=== PATIENT | male | born 1975 | race Caucasian/White ===

== ENCOUNTER → 2020-07-18 14:44 | Outpatient (BNVA) | payer OTHER, SELFPAY | PROVIDERS: PCP Nurse Practitioner Family; Visit Provider Internal Medicine Pulmonary Disease | DX: Z01.810 Encounter for preprocedural cardiovascular examination (principal); G47.33 Obstructive sleep apnea (adult) (pediatric); I27.20 Pulmonary hypertension, unspecified; J44.9 Chronic obstructive pulmonary disease, unspecified | CPT/HCPCS: 99212 ==

== ENCOUNTER → 2020-09-22 14:00 | Outpatient (BNVA) | payer OTHER, SELFPAY | PROVIDERS: PCP Nurse Practitioner Family; Visit Provider Internal Medicine Pulmonary Disease | DX: J44.9 Chronic obstructive pulmonary disease, unspecified (principal); G47.33 Obstructive sleep apnea (adult) (pediatric) | CPT/HCPCS: 99212 ==

== ENCOUNTER → 2021-01-24 10:55 | Outpatient (BNVA) | payer OTHER, SELFPAY | PROVIDERS: PCP Nurse Practitioner Family; Visit Provider Internal Medicine Pulmonary Disease | DX: Z01.811 Encounter for preprocedural respiratory examination (principal); G47.33 Obstructive sleep apnea (adult) (pediatric); J44.9 Chronic obstructive pulmonary disease, unspecified | CPT/HCPCS: 99212 ==

== ENCOUNTER 2022-07-15 12:02 | Outpatient (REF) | payer OTHER, SELFPAY ==
[2022-07-15 13:43] LABS: MANUAL DIFF FLAG NO
[2022-07-15 13:47] LABS: Basophils Absolute Auto 0.1 X10*3/uL (0.0-0.2); Eosinophils Absolute Auto 0.4 X10*3/uL (0.0-0.4); Eosinophils Percent Auto 6.4 % (0-4); Hematocrit 43.9 % (42.0-52.0); Hemoglobin 13.2 g/dl (14.0-18.0); Imm Gran Abs Auto 0.05 X10*3/uL (0.00-0.03); Imm Gran Pct Auto 0.7 % (0.0-0.4); Lymphocytes Percent Auto 15.3 % (20-40); Mean Corpuscular HGB Conc 30.1 g/dl (31.0-36.0); Mean Corpuscular Hemoglobin 25.3 pg (27.0-33.0); Mean Corpuscular Volume 84.1 fL (80.0-98.0); Mean Platelet Volume 12.1 fL (9.4-12.4); Monocytes Absolute Auto 0.5 X10*3/uL (0.1-1.2); Monocytes Percent Auto 7.2 % (2-11); Neutrophils Absolute Auto 4.6 x10*3/uL (2.0-8.3); Neutrophils Percent Auto 69.4 % (45-73); Platelet Count 145 X10*3/uL (160-400); Red Blood Count 5.22 X10*6/uL (4.60-5.80); White Blood Count 6.7 X10*3/uL (4.8-10.8)
[2022-07-15 13:57] LABS: Appearance Urine Clear; Color Urine Dark Yellow; Glucose Urine UA Negative (Negative); Leukocyte Esterase Urine Trace (Negative); Nitrite Urine Negative (Negative); Specific Gravity - Urine >= 1.030 (1.005-1.025); UMIC TRIGGER UACC YES; Urine Blood Negative (Negative); Urine Ketones Trace mg/dL (Negative); Urine Protein Trace mg/dL (Neg-Trace)
[2022-07-15 14:03] LABS: Bacteria Urine None Seen (None Seen); Hyaline Casts Urine 0-2 /LPF (0-2); RBC Urine 0-2 /HPF (0-2); Squamous Epithelial Cell Urine 0-2 /HPF (0-2); WBC Urine 0-5 /HPF (0-5)
[2022-07-15 14:04] LABS: Alanine Aminotransferase 16 U/L (0-40); Albumin Level 4.2 g/dL (3.5-5.0); Alkaline Phosphatase 140 U/L (39-117); Anion Gap 15 (12-20); Aspartate Amino Transferase 14 U/L (5-37); Bilirubin Total 0.8 mg/dL (0.0-1.0); Blood Urea Nitrogen 12 mg/dL (9-16); Calcium 8.7 mg/dL (8.4-10.2); Carbon Dioxide 27 mmol/L (22-29); Chloride 103 mmol/L (96-108); Cholesterol 125 mg/dL; Estimated Glomerular Filt Rate > 60; Glucose Fasting 87 mg/dL (60-99); HDL Cholesterol 20 mg/dL; LDL Cholesterol Calculated 79 mg/dl; Potassium 4.6 mmol/L (3.3-5.1); Sodium 140 mmol/L (135-145); Total Protein 6.3 g/dL (6.5-8.0); Triglycerides 132 mg/dL
[2022-07-15 14:21] LABS: TSH reflex Free T4 1.23 uIU/mL (0.32-4.0)
== END 2022-07-15 12:03 | disposition home or self-care (01) ==
LOC: HO.HMGCLDS 12:02
PROVIDERS: PCP Nurse Practitioner Family; Visit Provider Nurse Practitioner Family
DX: Z00.00 Encounter for general adult medical examination without abnormal findings (principal)
CPT/HCPCS: 36415; 80053; 80061; 81001; 84443; 85025

== ENCOUNTER → 2022-07-31 13:30 | Outpatient (BNVA) | payer OTHER, SELFPAY | PROVIDERS: PCP Nurse Practitioner Family; Referring Provider Nurse Practitioner Family; Visit Provider Surgery | DX: R22.9 Localized swelling, mass and lump, unspecified (principal); Z80.0 Family history of malignant neoplasm of digestive organs | CPT/HCPCS: 99202 ==

== ENCOUNTER 2022-08-27 09:04 | Day surgery (SDC) | payer OTHER, SELFPAY ==
[2022-08-21 10:41] VITALS: BMI 39.1
[2022-08-27] VITALS (7 sets, daily range): BP systolic 118–152; BP diastolic 72–94; PULSE 70–79; RESP 16–24; TEMP 36.3–36.8; O2SAT 93–98
--- NOTE | 2022-08-27 08:51 | MHC.SHP ---
Pre-Procedural Eval Section A Date of Service: 08/27/22 The patient is an INPATIENT: No Changes since office visit: No Cold of Flu in the past 2 weeks, No New Medical Problems, No Changes in Medication and No Patient answered all questions The History & Physical has been completed within 30 days and I have reviewed it.: Yes Section B Chief Complaint: Localized swelling, mass and lump, unspecified Allergies: Allergies Allergy/AdvReac Type Severity Reaction Status Date / Time walnut Allergy Intermediate Anaphylaxis, Verified 07/31/22 13:39 Throat swelling Plan I have reviewed the history and physical and performed a pertinent physical examination on my patient. No changes have occurred unless specified. Time Spent With Patient Time: Total time managing care of this patient today ____ minutes.
--- NOTE | 2022-08-27 09:21 | MHC.SHP ---
Pre-Procedural Eval Section A Date of Service: 08/27/22 The patient is an INPATIENT: No Changes since office visit: No Cold of Flu in the past 2 weeks, No New Medical Problems, No Changes in Medication and No Patient answered all questions The History & Physical has been completed within 30 days and I have reviewed it.: Yes Section B Chief Complaint: Localized swelling, mass and lump, unspecified Allergies: Allergies Allergy/AdvReac Type Severity Reaction Status Date / Time walnut Allergy Intermediate Anaphylaxis, Verified 08/27/22 09:12 Throat swelling Plan I have reviewed the history and physical and performed a pertinent physical examination on my patient. No changes have occurred unless specified. Time Spent With Patient Time: Total time managing care of this patient today ____ minutes.
[2022-08-27] MEDS: Albuterol Sulfate (0.083%) 2.5 MG/3 ML VIAL.NEB INHALE (09:44)
--- NOTE | 2022-08-27 10:34 | P.OP_ITS ---
Operative Note Operative Note Date of Service: 08/27/22 Narrative: Preop diagnosis: Large lipoma, left medial thigh near the perineum Postop diagnosis: The same Procedure: Excision of a large lipoma, left medial thigh near the perineum under anesthesia, The lipoma measured 7 cm in widest diameter. Surgeon: Shukri Lawton MD The patient is a 47-year-old male with the lipoma on the medial thigh near the perineum. He wanted to proceed with excision. In view of the size and l ocation, I explained to him it will be best to do since the OR under anesthesia. He understood the risks, benefits, and alternatives. He was brought to the operating room. He was placed in frogleg position under monitored anesthesia care. A surgical time-out was done. The area of the lipomas prepped and draped in the usual sterile fashion. I infiltrated the area with lidocaine 1%. The patient received preop cefazolin as well. I made an elliptical incision on the skin overlying this lipoma using a blade 15. This was carried down with electrocautery through the full-thickness of the skin and part of the subcutaneous fat until I was able to visualize the lipoma. I sharply dissected the lipoma off the rest of the subcutaneous layer using electrocautery as well as Metzenbaum scissors. I divided all adhesions to separate this until this completely delivered. This lipoma measured about 7 cm in diameter. I used electrocautery achieve hemostasis. Once hemostasis was confirmed, ir rigated the area of excision. I closed the incision with full-thickness nylon 3-0 interrupted sutures. I infiltrated the area with Marcaine 0.5% for postop analgesia. Dressings were applied. The procedure was then completed. The patient tolerated procedure well. There were no immediate complications. Initial and final counts of sponges and instruments were correct. Estimated blood loss about 25 cc. The patient was then transferred to the recovery room with stable vital signs.
--- NOTE | 2022-08-27 10:54 | HO.ANESPROP2 ---
HPI - Anesthesia Eval Consult details Narrative: copd, asthma, enedina, morbid obesity, current wheezing, difficult airway for lipoma excision PMFSH Active Problems Active Problems: All Active Problems (Updated 08/27/22 @ 09:10 by Purvi Guillaume, RN) Preop examination (Acute) ENEDINA (obstructive sleep apnea) (Acute) Preop pulmonary/respiratory exam (Acute) Physical exam (Acute) Screening for colon cancer (Acute) Family hx of colon cancer (Acute) Elevated alkaline phosphatase level (Acute) Ruptured varicose vein (Acute) Skin lesion (Acute) Family history of pancreatic cancer (Acute) Subcutaneous mass (Acute) COPD (chronic obstructive pulmonary disease) (Acute) Hyperlipidemia (Acute) Past Medical History Medical History (Updated 08/27/22 @ 09:10 by Purvi Guillaume, RN) Anemia Anxiety BPH (benign prostatic hyperplasia) COPD (chronic obstructive pulmonary disease) Depression Family history of pancreatic cancer HTN (hypertension) Hyperlipidemia Leukopenia OCD (obsessive compulsive disorder) Orchitis and epididymitis ENEDINA (obstructive sleep apnea) Pancytopenia Subcutaneous mass Thrombocytopenia Family History Family History Maternal Grandmother CLL (chronic lymphocytic leukemia) Breast CA Maternal Uncle Brain tumor Mother Malignancy Brother Substance use disorder Father Substance use disorder Colon cancer Family history of problems with anesthesia: Unobtainable Surgical History Surgical History (Updated 08/27/22 @ 09:12 by Purvi Guillaume RN) H/O prostatectomy (~04/2018) H/O tooth extraction History of ear surgery History of vein stripping History of ventral hernia repair Previous back surgery S/P herniorrhaphy S/P tonsillectomy History of Problems with Anesthesia: Unobtainable Social History Social History Housing: Apartment Are you a primary hospice care consultant to a significant other at home: No Alcohol intake: former Year quit: 2014 Patient Tobacco Use Status: Current everyday Tobacco user Tobacco use type: Cigarette Cigarette Packs Per Day: 1.5 Cigarettes Per Day: 30 e-Cigarette/Vaping Use: Never Used Second Hand Smoke Exposure: Yes Use of substances other than those prescribed or required for medical reasons: Yes Substance Use Frequency: Occasionally Are you DNR?: No Advance Directives: No Advance Directives Information Provided: Yes service: No Current occupational status: disabled Cognitive needs: No Hearing needs: No Vision needs: No Meds Allergies Allergy/AdvReac Type Severity Reaction Status Date / Time walnut Allergy Intermediate Anaphylaxis, Verified 08/27/22 09:12 Throat swelling Home Medications Medication Instructions Recorded Confirmed Last Taken Type clonazepam 1 mg tablet 1 mg PO DAILY PRN Anxiety 03/10/20 08/27/22 Unknown History lamotrigine 100 mg tablet,extended 200 mg PO BEDTIME 01/23/22 08/27/22 Unknown History release 24 hr mirtazapine 15 mg tablet 15 mg PO BEDTIME 01/23/22 08/27/22 Unknown History prazosin 2 mg capsule 2 mg PO BEDTIME 01/23/22 08/27/22 Unknown History lamotrigine 25 mg tablet 50 mg PO DAILY 07/22/22 08/27/22 Unknown History Exam Exam Date and Time: August 27, 2022 1054 Height,Weight and Vital Signs: Height 5 ft 9.5 in Weight 122.016 kg Last Vital Signs Temp 97.3 F 08/27/22 09:27 Pulse 70 08/27/22 09:44 Resp 16 08/27/22 09:44 BP 152/94 H 08/27/22 09:27 Pulse Ox 98 08/27/22 09:27 O2 Del Method Room Air 08/27/22 09:27 Airway Mallampati Class: III TM Dist: <=3cm Neck ROM: Limited Loose/Missing/Broken Teeth: Yes, Upper and Lower Heart: rrr Lungs: wheezing Assessment and Plan Assessment Anesthesia Assessment: Anesthesia Plan Discussed, Smoking Cess. Discussed and Chart Reviewed Final Anesthetic Review Family History of Problems with Anesthesia: Unobtainable History of Problems with Anesthesia: Unobtainable NPO: Yes ASA Class: III Final Preanesthetic Review: No Changes in Pt Med Stat, Meds/Allgs Chart Reviewed, Consent Obtained/Reviewed and Anes Risks/Benef Reviewed Patient Risk: High Procedure Risk: High Anesthetic Plan Anesthetic Plan: MAC: and Agree w/ Assess. and Plan Disposition: Standard PACU (wheezing despite treatment ; LA with mild sedation )
== END 2022-08-27 11:58 | disposition home or self-care (01) ==
PROVIDERS: PCP Nurse Practitioner Family; Visit Provider Surgery
PROC: (CPT 27327; principal; 2022-08-27 09:50)
DX: D17.24 Benign lipomatous neoplasm of skin and subcutaneous tissue of left leg (principal); Z80.0 Family history of malignant neoplasm of digestive organs; D72.819 Decreased white blood cell count, unspecified; D61.818 Other pancytopenia; D69.6 Thrombocytopenia, unspecified; D64.9 Anemia, unspecified; E78.5 Hyperlipidemia, unspecified; J44.9 Chronic obstructive pulmonary disease, unspecified; Z79.51 Long term (current) use of inhaled steroids; Z79.899 Other long term (current) drug therapy; F17.210 Nicotine dependence, cigarettes, uncomplicated; Z91.018 Allergy to other foods; Z98.890 Other specified postprocedural states
CPT/HCPCS: 27327; 88304; 94640; J0131; J0690; J1100; J1885

== ENCOUNTER 2023-02-27 14:10 | Outpatient (AMB) | payer OTHER, SELFPAY ==
--- NOTE | 2023-02-27 14:29 | MHC.OFFVIS ---
Intake Intake Visit Reasons: MRI CT TECH Varicose Veins Intake Note: MRI CT TECH/ PCP referral for VV, Left LE worse than Right LE. Pt has pretibial cluster that has had 2 episodes of bleeding within past 6 months. and has some large rope like VV on Left thigh. Pt states he has Hx of Right LE venous procedure. Pt states both legs are bothersome but Left is worse than Right. Pt states he has restless legs, he walks to help with the pain, also has itching and burning over VV Allergies walnut Allergy (Intermediate, Verified 02/27/23 14:37) Anaphylaxis, Throat swelling HPI MRI CT TECH Varicose Veins HPI Details Complex 47-year-old gentleman patient presents for painful varicose veins. Complaints include pain over varicosities, swelling of lower extremities, cramping, fatigue, and heaviness of the lower extremities. In addition he has had 2 prior Hospital ER visits for bleeding varicosities on the left pretibial surface It has been affecting there daily activities including walking. It is noted more so in left leg. Of note he continues to smoke 1 and half packs per day. He reports he quits drinking 2 years prior Patient denies any previous venous surgery or injections. Patient denies any history of DVT/ PE. Patient denies any history of phlebitis. Trial of compression includes - [id number] They now present for vascular evaluation regarding their varicose veins. [facility] Medical History Left leg cellulitis HTN (hypertension) OLVIN (obstructive sleep apnea) Family history of pancreatic cancer Subcutaneous mass COPD (chronic obstructive pulmonary disease) Hyperlipidemia Orchitis and epididymitis BPH (benign prostatic hyperplasia) Anxiety Depression OCD (obsessive compulsive disorder) Leukopenia Pancytopenia Thrombocytopenia Anemia Surgical History S/P excision of lipoma (08/27/22) History of vein stripping History of ventral hernia repair H/O tooth extraction S/P tonsillectomy History of ear surgery S/P herniorrhaphy H/O prostatectomy (~04/2018) Previous back surgery Family History Maternal Grandmother CLL (chronic lymphocytic leukemia) Breast CA Maternal Uncle Brain tumor Mother Malignancy Brother Substance use disorder Father Substance use disorder Colon cancer Social History Housing: Apartment Are you a primary pharmacy care coordinator to a significant other at home: No Alcohol intake: former Year quit: 2014 Patient Tobacco Use Status: Current everyday Tobacco user Tobacco use type: Cigarette Cigarette Packs Per Day: 1.5 Cigarettes Per Day: 30 e-Cigarette/Vaping Use: Never Used Second Hand Smoke Exposure: Yes service: No Current occupational status: disabled Cognitive needs: No Hearing needs: No Vision needs: No Review of Systems Const Reports as per HPI ENT Reports no additional complaints Card Denies chest pain, Denies chest pain at rest and Denies chest pain with activity Resp Denies chest congestion and Denies cough GI Reports no additional complaints Musc Details: pain over varicosities, aching of lower extremities, swelling, cramping, heaviness and tiredness, itching Denies abnormal gait Skin/Breast Reports pruritus and Denies wounds Neuro Reports no additional complaints and Denies abnormal gait Psych Denies no additional complaints Physical Exam Const General: cooperative, healthy appearing and comfortable Orientation/consciousness: oriented to person, oriented to place and oriented to time Neck Carotids: no bruits Chest Chest palpation & inspection: normal inspection of the chest and normal palpation of entire chest wall Resp Effort & Inspection: normal respiratory effort and able to speak in complete sentences Cardio Other: Bilateral palpable posterior tibial pulses Rate: regular rate Heart sounds: S1 normal heart sound present and S2 normal heart sound present Peripheral pulses: Peripheral pulses 2+ throughout GI Inspection: Yes normal to inspection Skin Other: +2 edema, large rope-like varicosities greater than 4 mm CEAP Classification C5 - healed ulcer Ep - Etiology Primary As - superficial veins P - reflux General skin exam: dry skin Neuro General: oriented to person, oriented to place and oriented to time Extrem Right lower extremity: full ROM, normal capillary refill and edema Left lower extremity: full ROM, normal capillary refill and edema Psych Mental Status: mental status grossly normal Assessment & Plan Assessment & Plan (1) Varicose veins of left lower extremity with inflammation: Code(s): I83.12 - Varicose veins of left lower extremity with inflammation Plan: In short, the patient has evidence of venous insufficiency. I have discussed the pathophysiology with the patient. In addition I have provided informational material regarding venous disease to the patient. We have discussed conservative measures including compression, elevation, and exercise. I have also provided a handout regarding appropriate use of compression stockings and where to purchase good compression stockings as well. I have taken the liberty of ordering venous insufficiency testing with the patient. They will follow up with me after testing. The patient had an opportunity to ask questions regarding the treatment plan. All questions were answered. Imaging studies, laboratory studies and physical exam results were discussed and reviewed in detail. No major barriers to understanding were identified. The patient expressed understanding and agreement with the above treatment plan. The patient is aware they should contact our office by phone for worsening of the current condition or the appearance of new symptoms. Thank you for allowing me to participate in the vascular care of this patient. If you have any questions or concerns regarding the treatment for the above condition please do not hesitate to contact me. The office telephone contact is [phone]. This note is constructed using voice recognition software. While every effort has been made to ensure accuracy, combiner operator errors may have been included. Thank you for allowing me to participate in the care of your patient. Yours sincerely, Dalton Cisse MD, FACS, R.P.V.I. Orders: Orders US venous duplex LE BI 1 Week I83.12 - Varicose veins of left lower extremity with inflammation Coding Level of Care Code New Pt Level 4 (31250) Diagnoses Varicose veins of left lower extremity with inflammation I83.12
== END 2023-02-27 15:11 | disposition home or self-care (01) ==
PROVIDERS: PCP Nurse Practitioner Family; Visit Provider Surgery Vascular Surgery
DX: I83.12 Varicose veins of left lower extremity with inflammation (principal)
CPT/HCPCS: 99203

== ENCOUNTER → 2023-02-27 14:10 | Outpatient (BNVA) | payer OTHER, SELFPAY | PROVIDERS: PCP Nurse Practitioner Family; Visit Provider Surgery Vascular Surgery ==

== ENCOUNTER 2023-05-02 12:38 | Outpatient (REF) | payer OTHER, SELFPAY ==
--- NOTE | ~2023-05-02 | US_ITS ---
EXAMINATION: US LOWER EXTREMITY VENOUS (REFLUX EXAM), BILATERAL CLINICAL INDICATION: Chronic venous insufficiency with lower extremity varicose veins formation COMPARISON: None. TECHNIQUE: Color flow triplex imaging and compression Doppler was performed to evaluate both the deep and the superficial systems bilaterally. To evaluate the superficial system, the examination was performed in the upright position. Color-flow Doppler ultrasound and compression ultrasound were utilized. In addition, maneuvers were utilized to demonstrate reflux. FINDINGS: 1. DEEP VENOUS ULTRASOUND OF THE RIGHT LOWER EXTREMITY: Common Femoral Vein: Compressible, normal respiratory variation and augmented flow. Femoral Vein: Compressible, normal color flow and augmentation. Popliteal Vein: Compressible, normal augmentation. Deep Reflux: There is no evidence of reflux in the deep system in either the common femoral vein, superficial femoral or the popliteal vein. There is no evidence of a Quick's cyst. 2. SUPERFICIAL ULTRASOUND WITH DOPPLER OF RIGHT LOWER EXTREMITY: GREAT SAPHENOUS VEIN: Saphenofemoral Junction: 1.3 cm; Reflux: 0 ms Proximal Thigh: 0.4 cm; Reflux: 0 ms Mid Thigh: 0.4 cm; Reflux: 2348 ms Above Knee: 0.4 cm; Reflux: 2160 ms At Knee: 0.4 cm; Reflux: 0 ms Below Knee: 0.2 cm; Reflux: 1688 ms Mid Calf: 0.3 cm; Reflux: 1400 ms Ankle: 0.3 cm; Reflux: 2464 ms DUPLICATED MEDIAL GREAT SAPHENOUS VEIN: Diameter: None imaged Reflux: NA DUPLICATED LATERAL GREAT SAPHENOUS VEIN: Diameter: None imaged Reflux: NA SMALL SAPHENOUS VEIN: Proximal: 0.3 cm; Reflux: 0 ms Distal: 0.2 cm; Reflux: 0 ms VEIN OF GIACOMINI: Size: NA Reflux: NA PERFORATORS: Location: Mid calf Size: 0.3 cm Reflux: None VARICOSITIES: Location: Proximal thigh, knee, mid calf and distal calf arising from of the great saphenous vein and hull drafter in the mid calf Size: Ranging from 0.3 to 0.6 cm Reflux: Ranging from 1468 ms to 2588 ms 3. DEEP VENOUS ULTRASOUND OF THE LEFT LOWER EXTREMITY: Common Femoral Vein: Compressible, normal respiratory variation and augmented flow. Femoral Vein: Compressible, normal color flow and augmentation. Popliteal Vein: Compressible, normal augmentation. Deep Reflux: There is no evidence of reflux in the deep system in either the common femoral vein, superficial femoral or the popliteal vein. There is no evidence of a Quick's cyst. 4. SUPERFICIAL ULTRASOUND WITH DOPPLER OF LEFT LOWER EXTREMITY: GREAT SAPHENOUS VEIN: Saphenofemoral Junction: 1.3 cm; Reflux: 0 ms Proximal Thigh: 0.2 cm; Reflux: 0 ms Mid Thigh: Not visualized Above Knee: Not visualized At Knee: Not visualized Below Knee: 0.3 cm; Reflux: 1684 ms Mid Calf: 0.3 cm; Reflux: 2080 ms Ankle: 0.3 cm; Reflux: 1240 ms DUPLICATED MEDIAL GREAT SAPHENOUS VEIN: Diameter: None imaged Reflux: NA DUPLICATED LATERAL GREAT SAPHENOUS VEIN: Diameter: None imaged Reflux: NA SMALL SAPHENOUS VEIN: Proximal: 0.3 cm; Reflux: 0 ms Distal: 0.2 cm; Reflux: 0 ms VEIN OF GIACOMINI: Size: NA Reflux: NA PERFORATORS: Location: Mid calf Size: 0.4 cm Reflux: None VARICOSITIES: Location: Large varicose vein in the mid to thigh arising from the residual great saphenous vein extending all the way through the distal thigh and into the calf Size: 0.6 cm Reflux: 1596 ms US/US venous duplex LE BI IMPRESSION: Right: Severe reflux in the right great saphenous vein with multiple branching varicosities as described above Left: Occlusion of the left great saphenous vein from the mid to thigh through the knee with a large varicose vein arising from the residual great saphenous vein extending throughout the thigh and calf. The residual great saphenous vein in the calf demonstrates severe reflux
== END 2023-05-02 12:39 | disposition home or self-care (01) ==
LOC: HO.US 12:38
PROVIDERS: PCP Nurse Practitioner Family; Visit Provider Surgery Vascular Surgery
DX: I83.12 Varicose veins of left lower extremity with inflammation (principal)
CPT/HCPCS: 93970

== ENCOUNTER 2023-05-29 13:32 | Outpatient (AMB) | payer OTHER, SELFPAY ==
--- NOTE | 2023-05-29 13:56 | MHC.OFFVIS ---
Intake Vital Signs 05/29/23 14:04 Height 5 ft 9.5 in Weight 268 lb BMI 39.0 BP 124/82 Blood Pressure Location Rt brachial Position Sitting Pulse 89 Pulse Source Pulse Oximeter Pulse Oximetry (%) 94 Oxygen Delivery Method Room Air Intake Visit Reasons: FU US Intake Note: Pt presents to the office today for a fu US. Pt states his left leg is usually in pain, has swelling in his whole leg and is having feet discoloration. Allergies walnut Allergy (Intermediate, Verified 05/29/23 14:00) Anaphylaxis, Throat swelling HPI FU US HPI Details Very pleasant 48-year-old gentleman presents for follow-up regarding venous insufficiency. Has had significant swelling. It appears that he has had previous venous ablation is which she is unclear about in particular the left lower extremity. He now presents for follow-up with venous insufficiency testing. [facility] Medical History Left leg cellulitis HTN (hypertension) OLVIN (obstructive sleep apnea) Family history of pancreatic cancer Subcutaneous mass COPD (chronic obstructive pulmonary disease) Hyperlipidemia Orchitis and epididymitis BPH (benign prostatic hyperplasia) Anxiety Depression OCD (obsessive compulsive disorder) Leukopenia Pancytopenia Thrombocytopenia Anemia Surgical History S/P excision of lipoma (08/27/22) History of vein stripping History of ventral hernia repair H/O tooth extraction S/P tonsillectomy History of ear surgery S/P herniorrhaphy H/O prostatectomy (~04/2018) Previous back surgery Family History Maternal Grandmother CLL (chronic lymphocytic leukemia) Breast CA Maternal Uncle Brain tumor Mother Malignancy Brother Substance use disorder Father Substance use disorder Colon cancer Social History (Updated 05/29/23 @ 14:03 by Ammy Aranda MA) Housing: Apartment Are you a primary healthcare translator to a significant other at home: No Alcohol intake: former Year quit: 2014 Patient Tobacco Use Status: Current everyday Tobacco user Tobacco use type: Cigarette Cigarette Packs Per Day: 1.5 Cigarettes Per Day: 25 e-Cigarette/Vaping Use: Never Used Second Hand Smoke Exposure: Yes service: No Current occupational status: disabled Cognitive needs: No Hearing needs: No Vision needs: No Review of Systems Const Reports as per HPI ENT Reports no additional complaints Card Denies chest pain, Denies chest pain at rest and Denies chest pain with activity Resp Denies chest congestion and Denies cough GI Reports no additional complaints Musc Details: pain over varicosities, aching of lower extremities, swelling, cramping, heaviness and tiredness, itching Denies abnormal gait Skin/Breast Reports pruritus and Denies wounds Neuro Reports no additional complaints and Denies abnormal gait Psych Denies no additional complaints Physical Exam Vital Signs: Last Vital Signs Pulse 89 05/29/23 14:04 BP 124/82 05/29/23 14:04 Pulse Ox 94 05/29/23 14:04 Oxygen Delivery Method Room Air 05/29/23 14:04 BMI result Body Mass Index 39.0 Const General: cooperative, healthy appearing and comfortable Orientation/consciousness: oriented to person, oriented to place and oriented to time Neck Carotids: no bruits Chest Chest palpation & inspection: normal inspection of the chest and normal palpation of entire chest wall Resp Effort & Inspection: normal respiratory effort and able to speak in complete sentences Cardio Rate: regular rate Heart sounds: S1 normal heart sound present and S2 normal heart sound present Peripheral pulses: Peripheral pulses 2+ throughout GI Inspection: Yes normal to inspection Skin Other: +2 edema, large rope-like varicosities greater than 4 mm CEAP Classification C4 - skin color changes Ep - Etiology Primary As - superficial veins P - reflux General skin exam: dry skin Neuro General: oriented to person, oriented to place and oriented to time Extrem Right lower extremity: full ROM, normal capillary refill and edema Left lower extremity: full ROM, normal capillary refill and edema Psych Mental Status: mental status grossly normal Results Reviewed Results Reviewed: Brief summary of venous insufficiency testing is as follows: right great saphenous vein: Positive right small saphenous vein: negative right accessory vein: none present left great saphenous vein: negative left small saphenous vein: Positive left accessory vein: none present Please note there is no evidence of any venous aneurysms or significant tortuosity Assessment & Plan Assessment & Plan (1) Varicose veins of left lower extremity with inflammation: Code(s): I83.12 - Varicose veins of left lower extremity with inflammation Plan: This patient has varicose veins with inflammation. They continue to be a source of discomfort for the patient. The patient has tried conservative treatment with compression, leg elevation and exercise program for over 3 months time. They have been compliant with all treatment. This has provided minimal relief for the patient. I do not anticipate this course of treatment will alter the underlying etiology. The patient has been scheduled for lower extremity venous treatment inclusive of --- left great saphenous vein Cyanoacralate ablation. Risks, benefits, and complications of this procedure has been discussed in detail with the patient including but not limited to bleeding, infection, and the development of a DVT. The patient has demonstrated a clear understanding and has consented. We will schedule the patient as soon as possible. Thank you for allowing us to participate in this patient's care. If there are any questions or concerns please do not hesitate to contact us. Coding Level of Care Code Est Pt Level 4 (95679) Diagnoses Varicose veins of left lower extremity with inflammation I83.12
[2023-05-29 14:04] VITALS: BP 124/82; PULSE 89; O2SAT 94; BMI 39.0
== END 2023-05-29 14:18 | disposition home or self-care (01) ==
PROVIDERS: PCP Nurse Practitioner Family; Visit Provider Surgery Vascular Surgery
DX: I83.12 Varicose veins of left lower extremity with inflammation (principal)
CPT/HCPCS: 99214

== ENCOUNTER → 2023-05-29 13:32 | Outpatient (BNVA) | payer OTHER, SELFPAY | PROVIDERS: PCP Nurse Practitioner Family; Visit Provider Surgery Vascular Surgery | DX: I83.12 Varicose veins of left lower extremity with inflammation (principal) | CPT/HCPCS: 99212 ==

== ENCOUNTER → 2023-06-27 11:53 | Outpatient (BNVA) | payer OTHER, SELFPAY | PROVIDERS: PCP Nurse Practitioner Family; Visit Provider Surgery Vascular Surgery | DX: I83.12 Varicose veins of left lower extremity with inflammation (principal) | CPT/HCPCS: 36482 ==

== ENCOUNTER 2023-06-30 15:05 | Outpatient (REF) | payer OTHER, SELFPAY ==
--- NOTE | ~2023-06-30 | US_ITS ---
EXAMINATION: US VENOUS ULTRASOUND WITH DOPPLER LOWER EXTREMITY, LEFT CLINICAL INFORMATION: Left venous field procedure. Pain left leg COMPARISON: None available. TECHNIQUE: Ultrasound of the deep veins is performed from the hip to the calf with compression sonography and color and pulse Doppler assessment. Spectral analysis with color-flow imaging is performed. FINDINGS: There is thrombus visualized in the greater saphenous femoral vein approximately 21 cm from these saphenofemoral venous junction. No flow seen. There is normal venous compression and respiratory variation and augmented flow. The visualized common femoral vein, superficial femoral vein, profunda femoral vein, popliteal vein, and the trifurcation region shows no evidence of deep venous thrombosis. There is no significant popliteal fossa cyst. If the patient's symptoms persist, followup ultrasound in 5 days 7 days might be of value to exclude proximal propagation from a non-visualized calf vein. US/US venous duplex LE IMPRESSION: Thrombus visualized in left greater saphenous vein an expected finding post venoseal procedure. There is no DVT seen in left lower extremity.
== END 2023-06-30 15:06 | disposition home or self-care (01) ==
LOC: HO.US 15:05
PROVIDERS: PCP Nurse Practitioner Family; Visit Provider Surgery Vascular Surgery
DX: M79.605 Pain in left leg (principal); Z98.890 Other specified postprocedural states
CPT/HCPCS: 93971

== ENCOUNTER 2023-07-02 08:04 | Outpatient (AMB) | payer OTHER, SELFPAY ==
--- NOTE | 2023-07-02 07:32 | A.OFFPC_ITS ---
Intake Visit Reasons: Discuss personal matters [phone] Allergies walnut Allergy (Intermediate, Verified 06/27/23 13:26) Anaphylaxis, Throat swelling Medication List - Last Reconciled 07/02/23 by QUINTIN Zheng- albuterol sulfate 2.5 mg (3 mL) inhalation Q4H PRN atorvastatin 40 mg PO DAILY [Blood pressure monitor Use to monitor blood pressure as directed] cetirizine 10 mg PO DAILY clonazepam 1 mg PO DAILY PRN gabapentin 400 mg PO QID 30 days lamotrigine 50 mg PO DAILY lamotrigine ER 200 mg PO BEDTIME metoprolol succinate ER 25 mg PO DAILY 90 days mirtazapine 15 mg PO BEDTIME nicotine 1 patch transdermal DAILY 30 days prazosin 2 mg PO BEDTIME umeclidinium 62.5 mcg/actuation (Incruse Ellipta) 1 inh inhalation DAILY Ventolin HFA 90 mcg/actuation (albuterol sulfate) 2 puffs inhalation Q6-8H PRN NS Tobacco use date assessed: 07/22/22 HPI Discuss personal matters [phone] HPI Details Pt c/o pain to his right axillary region. He reports that this mostly occurs at night. Pt states that he does not not have any lesions or redness to the area. Denies chest pain, increased shortness of breath, and dizziness. Pt knows to go to the ER with any worsening symptoms. Dyslipidemia: On atorvastatin 40mg. Will repeat labs. [facility] Medical History Left leg cellulitis HTN (hypertension) OLVIN (obstructive sleep apnea) Family history of pancreatic cancer Subcutaneous mass COPD (chronic obstructive pulmonary disease) Hyperlipidemia Orchitis and epididymitis BPH (benign prostatic hyperplasia) Anxiety Depression OCD (obsessive compulsive disorder) Leukopenia Pancytopenia Thrombocytopenia Anemia Surgical History S/P excision of lipoma (08/27/22) History of vein stripping History of ventral hernia repair H/O tooth extraction S/P tonsillectomy History of ear surgery S/P herniorrhaphy H/O prostatectomy (~04/2018) Previous back surgery Family History Maternal Grandmother CLL (chronic lymphocytic leukemia) Breast CA Maternal Uncle Brain tumor Mother Malignancy Brother Substance use disorder Father Substance use disorder Colon cancer Social History Housing: Apartment Are you a primary intensive care nurse to a significant other at home: No Alcohol intake: former Year quit: 2014 Patient Tobacco Use Status: Current everyday Tobacco user Tobacco use type: Cigarette Cigarette Packs Per Day: 1.5 Cigarettes Per Day: 25 e-Cigarette/Vaping Use: Never Used Second Hand Smoke Exposure: Yes service: No Current occupational status: disabled Cognitive needs: No Hearing needs: No Vision needs: No Questionnaire Thrive Questionnaire Date Thrive assessed: 01/23/22 VIRGEN-7 AMB Questionnaire VIRGEN-7 Date VIRGEN - 7 assessed: 01/23/22 Source: Developed by Drs. Emre Reynoso, Kristel Aguilera, Dionisio Izaguirre and colleagues, with an educational tenzin from [employer]. Review of Systems Const Reports as per HPI Physical exam (Primary Care) Tobacco/Smoking Status: Tobacco use Status Tobacco use date assessed 07/22/22 07/02/23 07:32 Patient Tobacco Use Status Current everyday Tobacco 07/02/23 07:32 Tobacco use type Cigarette 07/02/23 07:32 e-Cigarette/Vaping Use Never Used 07/02/23 07:32 Thrive Assessment: Date of Thrive Assessment Date Thrive assessed 01/23/22 07/02/23 07:32 Const General: cooperative Orientation/consciousness: patient oriented x3 Neuro General: patient oriented x3 Psych Appearance: grossly normal Mental Status: mental status grossly normal Speech and movement: Clear speech present Affect: normal affect Attitude: cooperative Thought process: Normal thought process present Thought content: Normal thought content present Insight: Good insight present (Psych) Judgement: Good judgement present (Psych) Telehealth Telehealth Location of provider rendering services: practice address Location of patient: address on file Patient Identification confirmed using: Name, : Yes Telehealth method: video Patient verbally consented to treatment: Yes Patient verbally consented to billing insurance company: Yes Patient informed of any privacy concerns related to visit: Yes Minutes spent on Phone/Video with Pt.: 10 Assessment and Plan Assessment & Plan (1) Hyperlipidemia: Code(s): E78.5 - Hyperlipidemia, unspecified Plan: labs ordered (2) Axillary pain: Code(s): M79.629 - Pain in unspecified upper arm Plan: er with worsening symptoms, pt will keep me informed with the discomfort Plan The patient agreed to the use of a medical appliance maker for this encounter. Scribed for QUINTIN Stark-BC by Dunia Siegel medical appliance maker, on 07/02/2023 at 07:35 EST. Orders: Orders Complete Blood Count Auto Diff Today E78.5 - Hyperlipidemia, unspecified TSH reflex Free T4 Today E78.5 - Hyperlipidemia, unspecified UA CC w/rflx Micro + Cult Today E78.5 - Hyperlipidemia, unspecified Lipid Panel Today E78.5 - Hyperlipidemia, unspecified Comprehensive Clay. Panel Fast Today E78.5 - Hyperlipidemia, unspecified Medications: Changed From nicotine 1 patch transdermal DAILY 30 days 14 ea 0RF To nicotine 1 patch transdermal DAILY 30 days 28 ea 0RF Coding Level of Care Code Tele Est Pt Level 3 (28937) Diagnoses Hyperlipidemia E78.5 Axillary pain M79.629
== END 2023-07-02 09:05 | disposition home or self-care (01) ==
LOC: HO.HMGC 08:04
PROVIDERS: PCP Nurse Practitioner Family; Visit Provider Nurse Practitioner Family
DX: E78.5 Hyperlipidemia, unspecified (principal); M79.621 Pain in right upper arm
CPT/HCPCS: 99213

== ENCOUNTER 2023-07-17 13:29 | Outpatient (AMB) | payer OTHER, SELFPAY ==
--- NOTE | 2023-07-17 13:43 | A.OFFVIS_ITS ---
Intake Vital Signs 07/17/23 13:44 Height 5 ft 9.5 in Weight 268 lb BMI 39.0 Intake Visit Reasons: 2 week follow up Left GSV Venaseal 06/27/23 Intake Note: follow up Left GSV Venaseal, pt states he has some VV clusters and some bumpy VV over left thigh area still. No Pain s/p procedure. Does have some VV on the right LE w/ pain Accompanied by: Spouse Allergies walnut Allergy (Intermediate, Verified 07/17/23 13:48) Anaphylaxis, Throat swelling HPI 2 week follow up Left GSV Venaseal 06/27/23 HPI Details Very pleasant 48-year-old gentleman presents for follow-up status post left great saphenous vein ablation. Appears to be doing relatively well with that. Reports swelling and discomfort in particular over the calf have decreased. He is now concerned about the right lower extremity. Now presents for follow-up. [facility] Medical History Left leg cellulitis HTN (hypertension) OLVIN (obstructive sleep apnea) Family history of pancreatic cancer Subcutaneous mass COPD (chronic obstructive pulmonary disease) Hyperlipidemia Orchitis and epididymitis BPH (benign prostatic hyperplasia) Anxiety Depression OCD (obsessive compulsive disorder) Leukopenia Pancytopenia Thrombocytopenia Anemia Surgical History S/P excision of lipoma (08/27/22) History of vein stripping History of ventral hernia repair H/O tooth extraction S/P tonsillectomy History of ear surgery S/P herniorrhaphy H/O prostatectomy (~04/2018) Previous back surgery Family History Maternal Grandmother CLL (chronic lymphocytic leukemia) Breast CA Maternal Uncle Brain tumor Mother Malignancy Brother Substance use disorder Father Substance use disorder Colon cancer Social History Housing: Apartment Are you a primary career coordinator to a significant other at home: No Alcohol intake: former Year quit: 2014 Patient Tobacco Use Status: Current everyday Tobacco user Tobacco use type: Cigarette Cigarette Packs Per Day: 1.5 Cigarettes Per Day: 25 e-Cigarette/Vaping Use: Never Used Second Hand Smoke Exposure: Yes service: No Current occupational status: disabled Cognitive needs: No Hearing needs: No Vision needs: No Review of Systems Const Reports as per HPI ENT Reports no additional complaints Card Denies chest pain, Denies chest pain at rest and Denies chest pain with activity Resp Denies chest congestion and Denies cough GI Reports no additional complaints Musc Details: pain over varicosities, aching of lower extremities, swelling, cramping, heaviness and tiredness, itching Denies abnormal gait Skin/Breast Reports pruritus and Denies wounds Neuro Reports no additional complaints and Denies abnormal gait Psych Denies no additional complaints Physical Exam Vital Signs: BMI result Body Mass Index 39.0 Const General: cooperative, healthy appearing and comfortable Orientation/consciousness: oriented to person, oriented to place and oriented to time Neck Carotids: no bruits Chest Chest palpation & inspection: normal inspection of the chest and normal palpation of entire chest wall Resp Effort & Inspection: normal respiratory effort and able to speak in complete sentences Cardio Rate: regular rate Heart sounds: S1 normal heart sound present and S2 normal heart sound present Peripheral pulses: Peripheral pulses 2+ throughout GI Inspection: Yes normal to inspection Skin Other: +2 edema, large rope-like varicosities greater than 4 mm CEAP Classification C4 - skin color changes Ep - Etiology Primary As - superficial veins P - reflux General skin exam: dry skin Neuro General: oriented to person, oriented to place and oriented to time Extrem Right lower extremity: full ROM, normal capillary refill and edema Left lower extremity: full ROM, normal capillary refill and edema Psych Mental Status: mental status grossly normal Results Reviewed Results Reviewed: Brief summary of venous insufficiency testing is as follows: right great saphenous vein: Positive right small saphenous vein: negative right accessory vein: none present left great saphenous vein: Ablated left small saphenous vein: negative left accessory vein: none present Please note there is no evidence of any venous aneurysms or significant tortuosity Assessment & Plan Assessment & Plan (1) Varicose veins of left lower extremity with inflammation: Comment: 06/30/2022 - left great saphenous vein Cyanoacralate ablation Code(s): I83.12 - Varicose veins of left lower extremity with inflammation Plan: Doing well will continue to monitor (2) Varicose veins of right lower extremity with inflammation: Code(s): I83.11 - Varicose veins of right lower extremity with inflammation Plan: This patient has varicose veins with inflammation. They continue to be a source of discomfort for the patient. The patient has tried conservative treatment with compression, leg elevation and exercise program for over 3 months time. They have been compliant with all treatment. This has provided minimal relief for the patient. I do not anticipate this course of treatment will alter the underlying etiology. The patient has been scheduled for lower extremity venous treatment inclusive of --- right great saphenous vein Cyanoacralate ablation. Risks, benefits, and complications of this procedure has been discussed in detail with the patient including but not limited to bleeding, infection, and the development of a DVT. The patient has demonstrated a clear understanding and has consented. We will schedule the patient as soon as possible. Thank you for allowing us to participate in this patient's care. If there are any questions or concerns please do not hesitate to contact us. Coding Level of Care Code Est Pt Level 4 (27104) Diagnoses Varicose veins of left lower extremity with inflammation I83.12 Varicose veins of right lower extremity with inflammation I83.11
[2023-07-17 13:44] VITALS: BMI 39.0
== END 2023-07-17 14:11 | disposition home or self-care (01) ==
PROVIDERS: PCP Nurse Practitioner Family; Visit Provider Surgery Vascular Surgery
DX: I83.12 Varicose veins of left lower extremity with inflammation (principal); I83.11 Varicose veins of right lower extremity with inflammation
CPT/HCPCS: 99214

== ENCOUNTER → 2023-07-17 13:29 | Outpatient (BNVA) | payer OTHER, SELFPAY | PROVIDERS: PCP Nurse Practitioner Family; Visit Provider Surgery Vascular Surgery | DX: I83.11 Varicose veins of right lower extremity with inflammation (principal); I83.12 Varicose veins of left lower extremity with inflammation | CPT/HCPCS: 99212 ==

== ENCOUNTER 2023-08-22 12:23 | Outpatient (AMB) | payer OTHER, SELFPAY ==
[2023-08-22 13:52] VITALS: BMI 39.0
--- NOTE | 2023-08-22 13:52 | A.OFFVIS_ITS ---
Intake Vital Signs 08/22/23 13:52 Height 5 ft 9.5 in Weight 268 lb BMI 39.0 Intake Visit Reasons: Right GSV Venaseal Allergies walnut Allergy (Intermediate, Verified 08/22/23 13:53) Anaphylaxis, Throat swelling PFSH Medical History Left leg cellulitis HTN (hypertension) OLVIN (obstructive sleep apnea) Family history of pancreatic cancer Subcutaneous mass COPD (chronic obstructive pulmonary disease) Hyperlipidemia Orchitis and epididymitis BPH (benign prostatic hyperplasia) Anxiety Depression OCD (obsessive compulsive disorder) Leukopenia Pancytopenia Thrombocytopenia Anemia Surgical History S/P excision of lipoma (08/27/22) History of vein stripping History of ventral hernia repair H/O tooth extraction S/P tonsillectomy History of ear surgery S/P herniorrhaphy H/O prostatectomy (~04/2018) Previous back surgery Family History Maternal Grandmother CLL (chronic lymphocytic leukemia) Breast CA Maternal Uncle Brain tumor Mother Malignancy Brother Substance use disorder Father Substance use disorder Colon cancer Social History Housing: Apartment Are you a primary rental boats caretaker to a significant other at home: No Alcohol intake: former Year quit: 2014 Patient Tobacco Use Status: Current everyday Tobacco user Tobacco use type: Cigarette Cigarette Packs Per Day: 1.5 Cigarettes Per Day: 25 e-Cigarette/Vaping Use: Never Used Second Hand Smoke Exposure: Yes service: No Current occupational status: disabled Cognitive needs: No Hearing needs: No Vision needs: No Physical Exam Vital Signs: BMI result Body Mass Index 39.0 Office Procedures Vascular Office Procedure Details Details: Diagnosis: Right Leg varicose veins with inflammation Procedure: Endovenous Ablation of the right Great Saphenous Vein with VenaSeal Closure System Anesthesia: Local infiltration 5 cc, Estimated Blood Loss: min Specimen: none Duplex ultrasound was used to map out the insufficient saphenous vein, and access was determined and marked on the overlying skin. The depth and diameter of the vein(s) to be treated was documented. The patient was placed supine on the procedure table and the leg was prepped and draped using sterile technique. Ultasound guidance was again used to localize the access site. 1% lidocaine was injected as a local anesthetic in the subcutaneous tissues at the target location in the GSV in the lower leg. Using ultrasound guidance, access was gained at this location with the 19 gauge thin walled access needle and followed by introduction of a short guidewire, location confirmed with ultrasound. A small, 3 mm incision was made at the access site to allow for introduction and placement of the 7 Fr x7cm introducer/dilator. The dilator and guidewire were removed. The 0.035 guidewire from the VenaSeal kit was then introduced and positioned at the saphenofemoral junction using ultrasound guidance. The 80 cm 7 Fr introducer sheath/dilator was positioned 5cm from the saphenofemoral junction. The guidewire and dilator were removed, and the remaining sheath was flushed with sterile saline, with the syringe remaining in place prior to the next steps. The cyanoacrylate adhesive was precisely primed into the 5 F delivery catheter and this catheter/syringe combination was attached within the dispenser gun. This assembly was introduced through the 7F sheath and positioned 5 cm caudal of the saphenofemoral junction under ultrasound guidance. The steps from the IFU were followed for dispensing amounts, locations and compression times, 2 aliquots proximally with 3 minutes of compression, and 1 aliquot every 3 cm distally with 30 sec of compression along the course of the vessel. Following the last injection and compression sequence, the catheter and introducer sheath were pulled out from the access site. Hemostasis was achieved with manual compression and an adhesive bandage was applied to the incision. Ultrasound confirmed complete coaptation and closure of the treated segments of the GSV, and the absence of any DVT at the saphenofemoral junction. Treatment time was approximately 7 minutes and the vein length treated was 35 cm. The drapes were removed and the patient cleaned and prepared for discharge. Post op ultrasound check is scheduled for 48-72 hours and the patient was given written post-op instructions. 08366 - Endoven Ther Chem Adhes 1st All charges added?: Procedure code (CPT) selection complete Assessment & Plan Assessment & Plan (1) Varicose veins of right lower extremity with inflammation: Comment: 08/22/2023- right great saphenous vein Cyanoacralate ablation Code(s): I83.11 - Varicose veins of right lower extremity with inflammation Plan: See op note Coding Level of Care Code Procedure Only Diagnoses Varicose veins of right lower extremity with inflammation I83.11 CPT Codes Details - Vascular 3: 30190 - Endoven Ther Chem Adhes 1st ([id number])
== END 2023-08-22 13:57 | disposition home or self-care (01) ==
PROVIDERS: PCP Nurse Practitioner Family; Visit Provider Surgery Vascular Surgery
DX: I83.11 Varicose veins of right lower extremity with inflammation (principal)
CPT/HCPCS: 36482

== ENCOUNTER → 2023-08-22 12:23 | Outpatient (BNVA) | payer OTHER, SELFPAY | PROVIDERS: PCP Nurse Practitioner Family; Visit Provider Surgery Vascular Surgery | DX: I83.11 Varicose veins of right lower extremity with inflammation (principal) | CPT/HCPCS: 36482 ==

== ENCOUNTER 2023-08-25 10:44 | Outpatient (REF) | payer OTHER, SELFPAY ==
--- NOTE | ~2023-08-25 | US_ITS ---
EXAMINATION: TRIPLEX SCANNING OF RIGHT LOWER EXTREMITY; SUPERFICIAL ULTRASOUND WITH DOPPLER OF RIGHT LOWER EXTREMITY CLINICAL INFORMATION: Status post VenaSeal ? ablation of the right great saphenous vein, originally performed on 08/22/2023. COMPARISON: Preprocedure studies. TECHNIQUE: Color flow triplex imaging and compression Doppler were performed as well as superficial ultrasound with Doppler. FINDINGS: TRIPLEX SCANNING OF RIGHT LOWER EXTREMITY: Respiratory variation, normal compression and augmented flow are noted throughout the lower extremity. The visualized common femoral vein, femoral vein, profunda femoral vein, popliteal vein and the calf veins show no evidence of deep venous thrombosis. There is no evidence of Quick's cyst. A prominent 1.7 x 1.1 x 3.2 cm lymph node is present in the right groin. SUPERFICIAL ULTRASOUND WITH DOPPLER OF RIGHT LOWER EXTREMITY: The right great saphenous vein is occluded from the access site to 2.7 cm before the saphenofemoral junction. There is no extension of thrombus into the deep system. US/US venous duplex LE RT IMPRESSION: 1. Normal triplex scan of the right without evidence of deep venous thrombosis. 2. Excellent appearance status post ablation of the right great saphenous vein.
== END 2023-08-25 10:45 | disposition home or self-care (01) ==
LOC: HO.US 10:44
PROVIDERS: PCP Nurse Practitioner Family; Visit Provider Surgery Vascular Surgery
DX: M79.604 Pain in right leg (principal)
CPT/HCPCS: 93971

== ENCOUNTER 2023-12-08 07:22 | Outpatient (AMB) | payer OTHER, SELFPAY ==
--- NOTE | 2023-12-08 07:58 | A.OFFPC_ITS ---
Intake Visit Reasons: 5M F/U per JG Allergies walnut Allergy (Intermediate, Verified 12/08/23 08:01) Anaphylaxis, Throat swelling Medication List - Last Reconciled 12/08/23 by Vic Silvestre [facility] albuterol sulfate 2.5 mg (3 mL) inhalation Q4H PRN atorvastatin 40 mg PO DAILY [Blood pressure monitor Use to monitor blood pressure as directed] cetirizine 10 mg PO DAILY clonazepam 1 mg PO DAILY PRN gabapentin 400 mg PO QID 30 days lamotrigine 50 mg PO DAILY lamotrigine ER 200 mg PO BEDTIME metoprolol succinate ER 25 mg PO DAILY 90 days mirtazapine 15 mg PO BEDTIME nicotine 1 patch transdermal DAILY 30 days prazosin 2 mg PO BEDTIME umeclidinium 62.5 mcg/actuation (Incruse Ellipta) 1 inh inhalation DAILY Ventolin HFA 90 mcg/actuation (albuterol sulfate) 2 puffs inhalation Q6-8H PRN NS Tobacco use date assessed: 07/22/22 HPI 5M F/U per JG HPI Details Patient was admitted to [facility] around the beginning of September for aspiration pneumonia. He was there for approximately 3 days started on antibiotics and sent home. I missing all notes with this admission. Today, patient reports feeling 100% better. He did quit smoking for approximately 3 months, then went back to it for a couple of days, and now is tobacco free for approximately 3 weeks. I will repeat a chest x-ray, and get more blood work. Patient denies any fevers, chills, fevers, headache, dizziness, increased shortness of breath. [facility] Medical History Left leg cellulitis HTN (hypertension) OLVIN (obstructive sleep apnea) Family history of pancreatic cancer Subcutaneous mass COPD (chronic obstructive pulmonary disease) Hyperlipidemia Orchitis and epididymitis BPH (benign prostatic hyperplasia) Anxiety Depression OCD (obsessive compulsive disorder) Leukopenia Pancytopenia Thrombocytopenia Anemia Surgical History S/P excision of lipoma (08/27/22) History of vein stripping History of ventral hernia repair H/O tooth extraction S/P tonsillectomy History of ear surgery S/P herniorrhaphy H/O prostatectomy (~04/2018) Previous back surgery Family History Maternal Grandmother CLL (chronic lymphocytic leukemia) Breast CA Maternal Uncle Brain tumor Mother Malignancy Brother Substance use disorder Father Substance use disorder Colon cancer Social History Housing: Apartment Are you a primary healthcare management consultant to a significant other at home: No Alcohol intake: former Year quit: 2014 Patient Tobacco Use Status: Current everyday Tobacco user Tobacco use type: Cigarette Cigarette Packs Per Day: 1.5 Cigarettes Per Day: 25 e-Cigarette/Vaping Use: Never Used Second Hand Smoke Exposure: Yes service: No Current occupational status: disabled Cognitive needs: No Hearing needs: No Vision needs: No Questionnaire Thrive Questionnaire Date Thrive assessed: 01/23/22 VIRGEN-7 AMB Questionnaire VIRGEN-7 Date VIRGEN - 7 assessed: 01/23/22 Source: Developed by Drs. Emre Reynoso, Kristel Aguilera, Dionisio Izaguirre and colleagues, with an educational tenzin from [employer]. Physical exam (Primary Care) Tobacco/Smoking Status: Tobacco use Status Tobacco use date assessed 07/22/22 07/02/23 07:32 Patient Tobacco Use Status Current everyday Tobacco 07/02/23 07:32 Tobacco use type Cigarette 07/02/23 07:32 e-Cigarette/Vaping Use Never Used 07/02/23 07:32 Thrive Assessment: Date of Thrive Assessment Date Thrive assessed 01/23/22 07/02/23 07:32 Psych Appearance: grossly normal Mental Status: mental status grossly normal Speech and movement: Normal speech and movement present Affect: normal affect Attitude: cooperative Thought process: Normal thought process present Thought content: Normal thought content present Insight: Good insight present (Psych) Judgement: Good judgement present (Psych) Telehealth Telehealth Telehealth Platform: [facility] Location of provider rendering services: practice address Location of patient: address on file Patient Identification confirmed using: Name, : Yes Telehealth method: video Patient verbally consented to treatment: Yes Patient verbally consented to billing insurance company: Yes Patient informed of any privacy concerns related to visit: Yes Minutes spent on Phone/Video with Pt.: 15 Assessment and Plan Assessment & Plan (1) Pneumonia: Code(s): J18.9 - Pneumonia, unspecified organism Plan: Patient feels much better. We will repeat chest x-ray to confirm resolution of pneumonia. Patient knows to go the ER with any worsening symptoms. Orders: Orders XR chest 2V Today J18.9 - Pneumonia, unspecified organism Comprehensive Met. Panel Today J18.9 - Pneumonia, unspecified organism TSH reflex Free T4 Today J18.9 - Pneumonia, unspecified organism UA CC w/rflx Micro + Cult Today J18.9 - Pneumonia, unspecified organism Complete Blood Count Auto Diff Today J18.9 - Pneumonia, unspecified organism Coding Level of Care Code Tele Est Pt Level 3 (30714) Diagnoses Pneumonia J18.9
== END 2023-12-08 10:20 | disposition home or self-care (01) ==
PROVIDERS: PCP Nurse Practitioner Family; Visit Provider Nurse Practitioner Family
DX: J18.9 Pneumonia, unspecified organism (principal)
CPT/HCPCS: 99213

== ENCOUNTER 2024-08-12 12:06 | Outpatient (REF) | payer OTHER, SELFPAY ==
--- NOTE | ~2024-08-12 | XR_ITS ---
EXAMINATION: XR CHEST CLINICAL INFORMATION: J18.9 - Pneumonia, unspecified organism COMPARISON: CT chest 02/04/2020 TECHNIQUE: 2 views of the chest were obtained. FINDINGS: No significant abnormality is noted involving the heart, lungs, mediastinum, bony thorax or soft tissues. XR/XR chest 2V IMPRESSION: Unremarkable chest examination. Electronically signed by: Arnold Hernadez MD 08/13/2024 07:53 AM EDT
[2024-08-12 13:13] LABS: MANUAL DIFF FLAG NO
[2024-08-12 13:26] LABS: Basophils Percent Auto 0.6 % (0-2); Eosinophils Absolute Auto 0.2 X10*3/uL (0.0-0.4); Eosinophils Percent Auto 2.5 % (0-4); Hematocrit 41.7 % (42.0-52.0); Hemoglobin 13.2 g/dl (14.0-18.0); Imm Gran Abs Auto 0.03 X10*3/uL (0.00-0.03); Imm Gran Pct Auto 0.4 % (0.0-0.4); Lymphocytes Absolute Auto 1.3 X10*3/uL (1.2-4.9); Lymphocytes Percent Auto 18.6 % (20-40); Mean Corpuscular HGB Conc 31.7 g/dl (31.0-36.0); Mean Corpuscular Hemoglobin 28.4 pg (27.0-33.0); Mean Corpuscular Volume 89.9 fL (80.0-98.0); Mean Platelet Volume 12.3 fL (9.4-12.4); Monocytes Absolute Auto 0.6 X10*3/uL (0.1-1.2); Monocytes Percent Auto 9.3 % (2-11); Neutrophils Absolute Auto 4.6 x10*3/uL (2.0-8.3); Neutrophils Percent Auto 68.6 % (45-73); Platelet Count 126 X10*3/uL (160-400); Red Blood Count 4.64 X10*6/uL (4.60-5.80); Red Cell Distribution Width 14.2 % (11.0-16.0); White Blood Count 6.8 X10*3/uL (4.8-10.8)
[2024-08-12 13:53] LABS: Appearance Urine Clear; Color Urine Yellow; Glucose Urine UA Negative (Negative); Leukocyte Esterase Urine Negative (Negative); Nitrite Urine Negative (Negative); Specific Gravity - Urine 1.025 (1.005-1.025); Urine Blood Negative (Negative); Urine Ketones Trace mg/dL (Negative); Urine Protein Negative (Neg-Trace)
[2024-08-12 14:13] LABS: Alanine Aminotransferase 29 U/L (0-40); Albumin Level 4.1 g/dL (3.5-5.0); Alkaline Phosphatase 133 U/L (39-117); Anion Gap 11 (12-20); Aspartate Amino Transferase 25 U/L (5-37); Bilirubin Total 0.8 mg/dL (0.0-1.0); Blood Urea Nitrogen 10 mg/dL (9-16); Calcium 8.9 mg/dL (8.4-10.2); Carbon Dioxide 30 mmol/L (22-29); Chloride 106 mmol/L (96-108); Estimated Glomerular Filt Rate > 60; Glucose Random 94 mg/dL (60-115); Potassium 4.6 mmol/L (3.3-5.1); Sodium 142 mmol/L (135-145); Total Protein 7.6 g/dL (6.5-8.0)
[2024-08-12 14:14] LABS: TSH reflex Free T4 0.98 uIU/mL (0.32-4.0)
== END 2024-08-12 12:07 | disposition home or self-care (01) ==
LOC: HO.HMGCX 12:06
PROVIDERS: PCP Nurse Practitioner Family; Visit Provider Nurse Practitioner Family
DX: J18.9 Pneumonia, unspecified organism (principal); J44.9 Chronic obstructive pulmonary disease, unspecified; Z80.0 Family history of malignant neoplasm of digestive organs; R33.9 Retention of urine, unspecified; D69.6 Thrombocytopenia, unspecified
CPT/HCPCS: 36415; 71046; 80053; 81003; 84443; 85025

== ENCOUNTER → 2024-08-12 12:11 | Outpatient (BNV) | payer OTHER, SELFPAY | PROVIDERS: PCP Nurse Practitioner Family; Visit Provider Radiology Diagnostic Radiology | DX: J18.9 Pneumonia, unspecified organism (principal) | CPT/HCPCS: 71046 ==

== ENCOUNTER 2024-08-12 12:59 | Outpatient (AMB) | payer OTHER, SELFPAY ==
[2024-08-12 13:03] VITALS: BP 122/80; PULSE 71; TEMP 36.6; O2SAT 94; BMI 36.1
--- NOTE | 2024-08-12 13:03 | MHC.PC.OV ---
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: No Accompanied by: Self / Same As Patient Allergies walnut Allergy (Intermediate, Verified 08/12/24 14:14) Anaphylaxis, Throat swelling Medication List - Last Reconciled 08/12/24 by Vic Silvestre, [facility]- albuterol sulfate 2.5 mg (3 mL) inhalation Q4H PRN atorvastatin 40 mg PO DAILY [Blood pressure monitor Use to monitor blood pressure as directed] cetirizine 10 mg PO DAILY gabapentin 400 mg PO QID 30 days lamotrigine 50 mg PO DAILY lamotrigine ER 200 mg PO BEDTIME metoprolol succinate ER 25 mg PO DAILY 90 days mirtazapine 15 mg PO BEDTIME prazosin 2 mg PO BEDTIME umeclidinium 62.5 mcg/actuation (Incruse Ellipta) 1 inh inhalation DAILY Ventolin HFA 90 mcg/actuation (albuterol sulfate) 2 puffs inhalation Q6-8H PRN NS Tobacco use date assessed: 08/12/24 Dental Screening Dental Screen Date: 08/12/24 Did you have a dental visit in the last 12 months?: Yes Did you have a dental problem in the last 6 months where you did not have access to dental care?: No Was dental information given to patient?: Patient has dentist HPI 4MoFollowUp HPI Details Chief Complaint Follow-up care following recent hospitalization for respiratory issues and pneumonia. History of Present Illness The patient is a 49-year-old male presenting for a hospital discharge follow-up after a recent admission for acute toxic respiratory failure and bacterial pneumonia. He was initially admitted with symptoms including chest discomfort, fever, and cough, subsequently diagnosed with pneumonia and confirmed to have influenza during the hospitalization. A CT angiography of the chest ruled out pulmonary embolism. Treatment included a 7-day course of Levofloxacin, starting at the hospital. He maintains a significant smoking history linked to his COPD diagnosis and has been relying on supplemental oxygen at home. His current oxygen saturation is stable at 94% without acute distress. He has a history of thrombocytopenia and had a past oncology consultation. During the hospital stay, he potentially experienced sepsis but has since recovered well. He has significantly reduced his smoking, reporting only three cigarettes in the past quarter. Social History - Significant smoking history with substantial reduction, smoking only three cigarettes in the past three months. - Requires supplemental oxygen, using 4 liters during the day and 2.5 to 3 liters at night. Health Maintenance - Encouraged to use a pulse oximeter at home to monitor oxygen saturation. - Recommended follow-up with pulmonary and oncology for ongoing management and evaluation. Review of Systems - Respiratory: Reports no acute respiratory distress; oxygen saturation of 94% on RA. - General: Denies acute distress at present. -denies any CP, N/V, fevers, chills Physical Exam General: Cooperative, healthy appearing, comfortable, no acute distress and well developed, obese Orientation: Patient oriented x3 Limitations: No limitations Head: Normal to inspection Ears: Hearing grossly normal bilaterally Nose: Normal external nose present Face and sinus: Normal facial exam Eyes: Appearance normal, both eyes and all related structures Neck: Normal visual inspection and Yes full ROM Respiratory: Diminished with some faint scattered wheezes. Able to speak in complete sentences. Cardiovascular: Regular rate and rhythm. Normal S1 and S2 GI: Normal to inspection. Soft to palpation and nontender Skin: No rashes or lesions noted Neuro: Patient oriented x3 Extremities: Normal to inspection Results - Imaging: CT angiography of chest showed no evidence of pulmonary embolism. - Microbiology: Diagnosis of bacterial pneumonia and influenza during hospital stay. - Labs and diagnostics pending from recent assessments; awaiting results. Plan I have referred the patient back to pulmonary care for continued evaluation and treatment due to his COPD and recent respiratory failure. Continued oxygen therapy is being assessed, though current usage is effective for maintaining his oxygen saturation. He also requires follow-up with oncology regarding his thrombocytopenia, ensuring continuity of care originally established. Encouragingly, he has substantially reduced smoking, an important factor in his COPD management, to be reinforced through ongoing counseling. Pending labs and imaging will be reviewed once available, with results integrated into his overall healthcare strategy. I encouraged employing a home pulse oximeter for continuous monitoring of oxygen levels, alongside his adherence to prescribed medications which are currently up to date. stopping incruse and starting trelegy. Discussion Notes I discussed with the patient his recent hospital discharge and the follow-up care plan that includes referrals to pulmonary and oncology specialists. The rationale for oxygen therapy and its current regimen was reviewed, highlighting the importance of maintaining adequate oxygen saturation and reducing smoking behavior, given his COPD history. We reviewed the use of antibiotics during his hospital stay, addressing the efficacy observed in his pneumonia treatment. Conservative follow-up with additional blood work post-discharge was mentioned, alongside the need to evaluate results bearing any further action. Alternatives for any exacerbations, emergency signs, or complications were clarified, emphasizing patient education. I advised further assessments based on upcoming lab outcomes, maintaining an active role in preventive care discussions. Patient Instructions - Continue using supplemental oxygen as prescribed, monitoring with a home pulse oximeter. - Follow up with pulmonary and oncology specialists as discussed. - Maintain current use of inhalers and update all medications as required. - Minimize smoking and participate in any supportive cessation programs available. - Await and comply with further instructions pending blood test results. - Contact the healthcare provider immediately if respiratory distress or other concerning symptoms develop. FORMERLY [facility], [facility]1983 Medical History (Updated 08/12/24 @ 13:58 by MARILIN Zheng) Left leg cellulitis HTN (hypertension) OLVIN (obstructive sleep apnea) Family history of pancreatic cancer Subcutaneous mass COPD (chronic obstructive pulmonary disease) Hyperlipidemia Orchitis and epididymitis BPH (benign prostatic hyperplasia) Anxiety Depression OCD (obsessive compulsive disorder) Leukopenia Pancytopenia Thrombocytopenia Anemia Surgical History S/P excision of lipoma (08/27/22) History of vein stripping History of ventral hernia repair H/O tooth extraction S/P tonsillectomy History of ear surgery S/P herniorrhaphy H/O prostatectomy (~04/2018) Previous back surgery Family History Maternal Grandmother CLL (chronic lymphocytic leukemia) Breast CA Maternal Uncle Brain tumor Mother Malignancy Brother Substance use disorder Father Substance use disorder Colon cancer Social History Housing: Apartment Are you a primary personal care home administrator to a significant other at home: No Alcohol intake: former Year quit: 2014 Patient Tobacco Use Status: Current everyday Tobacco user Tobacco use type: Cigarette Cigarette Packs Per Day: 1.5 Cigarettes Per Day: 25 e-Cigarette/Vaping Use: Never Used Second Hand Smoke Exposure: Yes service: No Current occupational status: disabled Cognitive needs: No Hearing needs: No Vision needs: No Questionnaire PHQ-9 Over the last 2 weeks, how often have you been bothered by any of the following problems? 1. Little interest or pleasure in doing things: not at all 2. Feeling down, depressed, or hopeless: several days 3. Trouble falling or staying asleep, or sleeping too much: more than half the days 4. Feeling tired or having little energy: more than half the days 5. Poor appetite or overeating: more than half the days 6. Feeling bad about yourself - or that you are a failure or have let yourself or your family down: several days 7. Trouble concentrating on things, such as reading the newspaper or watching television: not at all 8. Moving or speaking so slowly that other people could have noticed. Or the opposite - being so fidgety or restless that you have been moving around a lot more than usual: several days 9. Thoughts that you would be better off or of hurting yourself in some way: not at all Total score: 9 Depression Screening Interpretation: Positive Depression Screening Done: Yes 79746 - PHQ-9 Billing: Yes Source: Developed by Drs. Emre Reynoso, Kristel Aguilera, Dionisio Izaguirre and colleagues, with an educational tenzin from [employer]. Thrive Questionnaire Date Thrive assessed: 08/12/24 I am a: Patient What is your living situation today?: I have a steady place to live Within the past 12 months, did the food you bought not last and you didn't have the money to get more?: Never true Within the past 12 months, did you worry whether your food would run out before you got money to buy more?: Never true Do you have trouble paying for medicines?: I choose not to answer this question Do you have trouble getting transportation to medical appointments?: I choose not to answer this question Do you have trouble paying your heating and electricity bill?: I choose not to answer this question Do you have trouble taking care of your child, family member or friend?: I choose not to answer this question Do you have trouble with day-to-day activities such as bathing, preparing meals, shopping, managing finances, etc.?: I choose not to answer this question Are you currently unemployed and looking for a job?: I choose not to answer this question Are you interested in more education?: I choose not to answer this question Please select the resources that you would like help with: None Currently or been in a relationship where the following occur: I choose not to answer THRIVE Score: 0 AUDIT C Alcohol Use Questionnaire (AUDIT-C) 1. How often do you have a drink containing alcohol?: Never 3. How often do you have six or more drinks on one occasion?: Never Total Score: 0 Score Reviewed/Action Taken: Yes VIRGEN-7 AMB Questionnaire VIRGEN-7 Date VIRGEN - 7 assessed: 08/12/24 Feeling nervous, anxious, or on edge: 2 = More than half the days Not being able to stop or control worryin = Several days Worrying too much about different things: 2 = More than half the days Trouble relaxin = Nearly every day Being so restless that it is hard to sit still: 3 = Nearly every day Becoming easily annoyed or irritable: 1 = Several days Feeling afraid as if something awful might happen: 0 = Not at all Total VIRGEN-7 score (0-4 normal; 5-9 mild; 10-14 moderate; 15-21 severe): 12 Source: Developed by Drs. Emre Reynoso, Kristel Aguilera, Dionisio Izaguirre and colleagues, with an educational tenzin from [employer]. VIRGEN-7 Assessment Billing VIRGEN-7 Assessment Tool: VIRGEN-7 Assessment 23108 Physical exam (Primary Care) Vital Signs: Last Vital Signs Temp 97.9 F 08/12/24 13:03 Pulse 71 08/12/24 13:03 BP 122/80 08/12/24 13:03 Pulse Ox 94 08/12/24 13:03 Oxygen Delivery Method Room Air 08/12/24 13:03 BMI result Body Mass Index 36.1 Tobacco/Smoking Status: Tobacco use Status Tobacco use date assessed 08/12/24 08/12/24 13:04 Patient Tobacco Use Status Current everyday Tobacco 08/12/24 13:04 Tobacco use type Cigarette 08/12/24 13:04 e-Cigarette/Vaping Use Never Used 08/12/24 13:04 Depression Screening Interpretation: Positive Thrive Assessment: Date of Thrive Assessment Date Thrive assessed 08/12/24 08/12/24 13:04 Currently or been in a relationship where the following occur: I choose not to answer Coding Level of Care Code Est Pt Level 4 (49236) Diagnoses Pneumonia J18.9 COPD (chronic obstructive pulmonary disease) J44.9 Sepsis A41.9 Screening for colon cancer Z12.11 Family hx of colon cancer Z80.0 Family history of pancreatic cancer Z80.0 Incomplete bladder emptying R33.9 Thrombocytopenia D69.6 Additional Codes VIRGEN-7 Assessment Billing - VIRGEN-7 Assessment Tool: VIRGEN-7 Assessment 96400 ([id number]) PHQ-9 - 69484 - PHQ-9 Billing: Yes ([id number]) Assessment & Plan Assessment & Plan (1) Pneumonia: Code(s): J18.9 - Pneumonia, unspecified organism Category: Medical (2) COPD (chronic obstructive pulmonary disease): Code(s): J44.9 - Chronic obstructive pulmonary disease, unspecified Category: Medical (3) Sepsis: Code(s): A41.9 - Sepsis, unspecified organism Category: Medical (4) Screening for colon cancer: Code(s): Z12.11 - Encounter for screening for malignant neoplasm of colon Category: Medical (5) Family hx of colon cancer: Code(s): Z80.0 - Family history of malignant neoplasm of digestive organs Category: Medical (6) Family history of pancreatic cancer: Code(s): Z80.0 - Family history of malignant neoplasm of digestive organs Category: Medical (7) Incomplete bladder emptying: Code(s): R33.9 - Retention of urine, unspecified Category: Medical (8) Thrombocytopenia: Code(s): D69.6 - Thrombocytopenia, unspecified Category: Medical Plan . Orders: Orders Prostate Specific Antigen Scr Today R33.9 - Retention of urine, unspecified MR abdomen wo/w con Today Z80.0 - Family history of malignant neoplasm of digestive organs Referrals Pulmonology Referral J18.9 - Pneumonia, unspecified organism, J44.9 - Chronic obstructive pulmonary disease, unspecified Gastroenterology Referral Z12.11 - Encounter for screening for malignant neoplasm of colon, Z80.0 - Family history of malignant neoplasm of digestive organs Genetics Referral Z80.0 - Family history of malignant neoplasm of digestive organs Hematology & Oncology Referral D69.6 - Thrombocytopenia, unspecified Medications: New xufurwukxod-zxtyhtvss-jhyikdsn 200-62.5-25 mcg (Trelegy Ellipta) 1 inh inhalation DAILY 60 ea 0RF Discontinued umeclidinium 62.5 mcg/actuation (Incruse Ellipta) Discontinued Reason: Doctor's Order 1 inh inhalation DAILY 30 ea 6RF
== END 2024-08-12 14:45 | disposition home or self-care (01) ==
LOC: HO.HMCC 12:59
PROVIDERS: PCP Nurse Practitioner Family; Visit Provider Nurse Practitioner Family
DX: J18.9 Pneumonia, unspecified organism (principal); J44.9 Chronic obstructive pulmonary disease, unspecified; A41.9 Sepsis, unspecified organism; D69.6 Thrombocytopenia, unspecified; Z12.11 Encounter for screening for malignant neoplasm of colon; Z80.0 Family history of malignant neoplasm of digestive organs; R33.9 Retention of urine, unspecified

== ENCOUNTER 2024-09-03 13:16 | Outpatient (REF) | payer OTHER, SELFPAY ==
--- NOTE | ~2024-09-03 | MR_ITS ---
CLINICAL HISTORY: Z80.0 - Family history of malignant neoplasm of digestive organs MR abdomen with and without gadolinium Comparison: None Findings: There are small bilateral renal cysts. The rest of the solid organs are unremarkable. There is borderline splenomegaly. No ascites. The visualized bowel is unremarkable. IMPRESSION: 1. There are small bilateral renal cysts. 2. There is borderline splenomegaly. This document has been electronically signed by: Levi Arias MD on 09/04/2024 10:45:13
[2024-09-03] MEDS: gadobutroL 10 ML VIAL IVPUSH (14:02)
== END 2024-09-03 13:17 | disposition home or self-care (01) ==
LOC: HO.MRI 13:16
PROVIDERS: PCP Nurse Practitioner Family; Visit Provider Nurse Practitioner Family
DX: N28.1 Cyst of kidney, acquired (principal); R16.1 Splenomegaly, not elsewhere classified; Z80.0 Family history of malignant neoplasm of digestive organs
CPT/HCPCS: 74183; A9585

== ENCOUNTER → 2024-09-03 13:16 | Outpatient (BNV) | payer OTHER, SELFPAY | PROVIDERS: PCP Nurse Practitioner Family; Visit Provider Radiology Diagnostic Radiology | DX: N28.1 Cyst of kidney, acquired (principal); Z80.0 Family history of malignant neoplasm of digestive organs; R16.1 Splenomegaly, not elsewhere classified | CPT/HCPCS: 74183 ==